=== PATIENT | female | born 2000 | race Hispanic/Latino ===

== ENCOUNTER 2022-06-13 09:04 | Emergency (ER) | payer SELFPAY ==
[2022-06-13] MEDS ORDERED: Ketorolac Tromethamine 30 MG/ML VIAL ONE (12:34)
== END 2022-06-13 13:14 | disposition home or self-care (01) ==
LOC: ERS 09:04
DX: S43.101A Unspecified dislocation of right acromioclavicular joint, initial encounter (principal); V00.148A Other scooter (nonmotorized) accident, initial encounter
CPT/HCPCS: 96372; 99282; J1885